=== PATIENT | female | born 1945 | race Caucasian/White ===

== ENCOUNTER 2018-01-18 12:02 | Emergency (ER) | payer MEDICARE, BC ==
[2018-01-18] MEDS: DIPHENHYDRAMINE HCL 50 MG/ML VIAL IVP ONE (12:41)
[2018-01-18] MEDS: METHYLPREDNISOLONE PF 125MG/VIAL IVP ONE (12:41)
[2018-01-18] MEDS: KETOROLAC 30 MG/ML VIAL IVP ONE (12:46)
--- NOTE | 2018-01-18 13:38 | Emergency Department Record ---
History of Present Illness - General Chief complaint: Bite Insect/other Stated complaint: BEE STINGS Time Seen by Provider: 01/18/18 12:22 Source: Patient Mode of Arrival: Wheelchair Limitations: No limitations - History of Present Illness Initial comments: pt was stung by bees 6 times. she has no hx of allergies to bees.. she has pain from the stings and some swelling and erythema over the stings. she was stung on the face, chest and l arm complaint: Insect bite/sting Onset/Timin -: Minutes(s) Hx Tetanus Toxoid Vaccination: No Location: Generalized, Face, Neck, Chest, LUE Severity: Moderate Severity scale (1-10): 7 Quality: Sharp Consistency: Constant Improves with: None Worsens with: None Context: Witnessed insect bite Associated symptoms: Denies other symptoms Treatments Prior to Arrival: None - Related Data Home Medications Medication Instructions Recorded Confirmed Last Taken Spironolactone 50 mg PO DAILY 01/18/18 01/18/18 Unknown Valsartan 40 mg PO DAILY 01/18/18 01/18/18 Unknown Allergies Allergy/AdvReac Type Severity Reaction Status Date / Time albuterol sulfate Allergy Severe SWELLING Verified 10/18/15 11:16 [From ProAir HFA] OF THE TONGUE aspirin [ASPIRIN] Allergy Severe SHORTNESS Verified 10/18/15 11:16 OF BREATH azithromycin Allergy Severe SWELLING Verified 06/28/15 14:14 OF THE LIPS ciprofloxacin [From CIPRO] Allergy Severe SWELLING Verified 10/18/15 11:16 OF THE LIPS ciprofloxacin HCl Allergy Severe SWELLING Verified 10/18/15 11:16 [From CIPRO] OF THE LIPS ranitidine HCl [From ZANTAC] Allergy Severe SHORTNESS Verified 10/18/15 11:16 OF BREATH enalapril maleate Allergy Intermediate SWELLING Verified 10/18/15 11:16 [From VASOTEC] (GENERAL) enalaprilat dihydrate Allergy Intermediate SWELLING Verified 10/18/15 11:16 [From VASOTEC] (GENERAL) cephalexin monohydrate Allergy Mild HIVES Verified 10/18/15 11:16 [From KEFLEX] erythromycin base Allergy Mild HIVES Verified 10/18/15 11:16 [ERYTHROMYCIN BASE] Penicillins [PENICILLINS] Allergy Mild HIVES Verified 10/18/15 11:16 Sulfa (Sulfonamide Allergy Mild RASH Verified 10/18/15 11:16 Antibiotics) [SULFA (SULFONAMIDE ANTIBIOTICS)] Tetracyclines [TETRACYCLINES] Allergy Unknown SWELLING Verified 06/28/14 06:45 OF THE LIPS cefaclor [From Ceclor] AdvReac Mild PT UNSURE Verified 10/18/15 11:16 OF REACTION gentamicin [Gentamicin] AdvReac Mild PT UNSURE Verified 10/18/15 11:16 OF REACTION tetracycline HCl AdvReac Mild PT UNSURE Verified 10/18/15 11:16 [From Achromycin] OF REACTION IODINE Allergy Severe SHORTNESS Uncoded 10/18/15 11:16 OF BREATH Travel Screening - Travel/Exposure Within Last 30 Days Have you traveled within the last 30 days?: No Review of Systems Reviewed: No additional complaints except as noted below Constitutional: Reports: As per HPI. Denies: Chills, Fever, Malaise, Night sweats, Weakness, Weight change Eyes: Reports: As per HPI. Denies: Eye discharge, Eye pain, Photophobia, Vision change ENT: Reports: As per HPI. Denies: Congestion, Dental pain, Ear pain, Epistaxis , Hearing loss, Throat pain Respiratory: Reports: As per HPI. Denies: Cough, Dyspnea, Hemoptysis, Stridor, Wheezes Cardiovascular: Reports: As per HPI. Denies: Arrhythmia, Chest pain, Dyspnea on exertion, Edema, Murmurs, Orthopnea, Palpitations, Paroxysmal nocturnal dyspnea, Rheumatic Fever, Syncope Endocrine: Reports: As per HPI. Denies: Fatigue, Heat or cold intolerance, Polydipsia, Polyuria Gastrointestinal: Reports: As per HPI. Denies: Abdominal pain, Constipation, Diarrhea, Hematemesis, Hematochezia, Melena, Nausea, Vomiting Genitourinary: Reports: As per HPI. Denies: Abnormal menses, Discharge, Dyspareunia, Dysuria, Frequency, Hematuria, Incontinence, Retention, Urgency Musculoskeletal: Reports: As per HPI. Denies: Arthralgia, Back pain, Gout, Joint swelling, Myalgia, Neck pain Skin: Reports: As per HPI. Denies: Bruising, Change in color, Change in hair/ nails, Lesions, Pruritus, Rash Neurological: Reports: As per HPI. Denies: Abnormal gait, Confusion, Headache, Numbness, Paresthesias, Seizure, Tingling, Tremors, Vertigo, Weakness Psychiatric: Reports: As per HPI. Denies: Anxiety, Auditory hallucinations, Depression, Homicidal thoughts, Suicidal thoughts, Visual hallucinations Hematological/Lymphatic: Reports: As per HPI. Denies: Anemia, Blood Clots, Easy bleeding, Easy bruising, Swollen glands Past Medical History - SOCIAL HISTORY Smoking Status: Never smoker - RESPIRATORY Hx Respiratory Disorders: Yes Hx Asthma: Yes - CARDIOVASCULAR Hx Cardio Disorders: Yes Hx Chest Pain: No Hx Deep Vein Thrombosis: Yes (LLE-> r/t injury) Hx Hypertension: Yes Hx Irregular Heartbeat: Yes (a-fib) Hx Palpitations: Yes Comment:: currently wearing a 30 day event recorder d/t syncopal episodes - NEURO Hx Neuro Disorders: Yes Hx Dizziness: Yes (r/t sinus issues) Comment:: pt states she's passed out w/o warning several times - GI Hx GI Disorders: Yes Hx Reflux: Yes (diet controlled) Hx Hepatitis/Jaundice: Yes (when young"infectious") Hx of Polyps: Yes - Hx Genitourinary Disorders: Yes Hx Bladder Problem: Yes (frequency) - ENDOCRINE Hx Endocrine Disorders: Yes Hx Diabetes: Yes (boarderline) - MUSCULOSKELETAL Hx Musculoskeletal Disorders: Yes Hx Arthritis: Yes Hx Back Injury: Yes (2012-fractured vertebra) Comment:: osteopenia - PSYCH Hx Psych Problems: Yes Hx Anxiety: Yes - HEMATOLOGY/ONCOLOGY Hx Hematology/Oncology Disorders: No Family Medical History Any Significant Family History?: Yes Hx Cancer: Mother, Brother/Sister *Cancer Comment: skin, esophageal and stomach, breast Hx Heart Disease: Brother/Sister Hx Stroke: Brother/Sister Physical Exam - General General Appearance: Alert, Oriented x3, Cooperative, Mild distress - Head Head exam: Normal inspection - Eye Eye exam: Normal appearance, PERRL, EOMI Pupils: Normal accommodation - ENT ENT exam: Normal exam, Mucous membranes moist, Normal external ear exam, Normal orophraynx Ear exam: Normal external inspection. negative: External canal tenderness Nasal Exam: Normal inspection. negative: Discharge, Sinus tenderness Mouth exam: Normal external inspection, Tongue normal Teeth exam: Normal inspection. negative: Dental caries Throat exam: Normal inspection. negative: Tonsillar erythema, Tonsillar exudate - Neck Neck exam: Normal inspection, Full ROM. negative: Tenderness - Respiratory Respiratory exam: Normal lung sounds bilaterally. negative: Respiratory distress - Cardiovascular Cardiovascular Exam: Regular rate, Normal rhythm, Normal heart sounds - GI/Abdominal GI/Abdominal exam: Soft, Normal bowel sounds. negative: Tenderness - Rectal Rectal exam: Deferred - exam: Deferred - Extremities Extremities exam: Normal inspection, Full ROM, Normal capillary refill. negative: Tenderness - Back Back exam: Reports: Normal inspection, Full ROM. Denies: Muscle spasm, Rash noted, Tenderness - Neurological Neurological exam: Alert, CN II-XII intact, Normal gait, Oriented X3 - Psychiatric Psychiatric exam: Normal affect, Normal mood - Skin Skin exam: Dry, Intact, Normal color, Warm Type of lesion: Bite/sting Distribution of rash: Chest, Face, Neck, LUE Course Vital Signs 01/18/18 01/18/18 12:04 12:50 Temperature 97.8 F Pulse Rate 78 Pulse Rate [ 82 Pulse Ox Probe] Respiratory 16 22 Rate Blood Pressure 202/151 Blood Pressure 210/99 [Left Arm] Pulse Ox 95 100 - Reevaluation(s) Reevaluation #1: 01/18/18 13:39 pt is feeling better Reevaluation #2: 01/18/18 13:49 pt feels better. Disposition Disposition: Discharge Clinical Impression: Bee sting Qualifiers: Encounter type: initial encounter Injury intent: accidental or unintentional Qualified Code(s): T63.441A - Toxic effect of venom of bees, accidental ( unintentional), initial encounter Disposition: Home, Self-Care Condition: (1) Good Instructions: Insect Bite or Sting (ED) Additional Instructions: follow up with family doctor. return sooner if worse. benadryl every 6 hours if needed. ice to sore areas Forms: Patient Portal Access Quality - Quality Measures Quality Measures: N/A - Blood Pressure Screening Does Patient Have Any of the Following: Active Dx of HTN Blood Pressure Classification: Hypertensive Reading Systolic Measurement: 202 Diastolic Measurement: 151 Screening for High Blood Pressure: Patient Exclusion, Hx of HTN [G9744]
== END 2018-01-18 14:05 | disposition home or self-care (01) ==
LOC: ER 12:02
DX: T63.441A Toxic effect of venom of bees, accidental (unintentional), initial encounter (principal); R21 Rash and other nonspecific skin eruption; I10 Essential (primary) hypertension
CPT/HCPCS: 96374; 96375; 99284; J1200; J2930

== ENCOUNTER 2018-04-01 13:16 | Emergency (ER) | payer MEDICARE, BC ==
--- NOTE | 2018-04-01 13:40 | Emergency Department Record ---
History of Present Illness - General Chief complaint: ENT Stated complaint: TONGUE SWELLING Time Seen by Provider: 04/01/18 13:30 Source: Patient Mode of Arrival: Ambulatory Limitations: No limitations - History of Present Illness Initial comments: The patient is here due to feeling that her tongue is swollen for about a week. She also feels like she is having mild trouble swallowing but no pain, SOB, JAMIE , or obvious swelling to her tongue, face or neck. She also has had no voice changes or drooling. The patient has a hx of multiple allergies and has recently stopped her Zyrtec due to having an allergy test in 8 days. The patient does take Lasartan but has been on that for some time. MD complaint: Other Onset/Timin -: Days(s) Associated Symptoms: Cough, Other - Related Data Home Medications Medication Instructions Recorded Confirmed Last Taken Losartan Potassium 50 mg PO BID 04/01/18 04/01/18 04/01/18 Previous Rx's Medication Instructions Recorded Albuterol Sulfate 0.083% [Neb] 3 ml NEB .EVERY 4-6 HOURS PRN #1 ml 04/01/18 Prednisone [Prednisone 20Mg] 40 mg PO DAILY #8 tab 04/01/18 Allergies Allergy/AdvReac Type Severity Reaction Status Date / Time albuterol sulfate Allergy Severe SWELLING Verified 10/18/15 11:16 [From ProAir HFA] OF THE TONGUE aspirin [ASPIRIN] Allergy Severe SHORTNESS Verified 10/18/15 11:16 OF BREATH azithromycin Allergy Severe SWELLING Verified 06/28/15 14:14 OF THE LIPS ciprofloxacin [From CIPRO] Allergy Severe SWELLING Verified 10/18/15 11:16 OF THE LIPS ciprofloxacin HCl Allergy Severe SWELLING Verified 10/18/15 11:16 [From CIPRO] OF THE LIPS ranitidine HCl [From ZANTAC] Allergy Severe SHORTNESS Verified 10/18/15 11:16 OF BREATH enalapril maleate Allergy Intermediate SWELLING Verified 10/18/15 11:16 [From VASOTEC] (GENERAL) enalaprilat dihydrate Allergy Intermediate SWELLING Verified 10/18/15 11:16 [From VASOTEC] (GENERAL) cephalexin monohydrate Allergy Mild HIVES Verified 10/18/15 11:16 [From KEFLEX] erythromycin base Allergy Mild HIVES Verified 10/18/15 11:16 [ERYTHROMYCIN BASE] Penicillins [PENICILLINS] Allergy Mild HIVES Verified 10/18/15 11:16 Sulfa (Sulfonamide Allergy Mild RASH Verified 10/18/15 11:16 Antibiotics) [SULFA (SULFONAMIDE ANTIBIOTICS)] Tetracyclines [TETRACYCLINES] Allergy Unknown SWELLING Verified 06/28/14 06:45 OF THE LIPS cefaclor [From Ceclor] AdvReac Mild PT UNSURE Verified 10/18/15 11:16 OF REACTION gentamicin [Gentamicin] AdvReac Mild PT UNSURE Verified 10/18/15 11:16 OF REACTION tetracycline HCl AdvReac Mild PT UNSURE Verified 10/18/15 11:16 [From Achromycin] OF REACTION IODINE Allergy Severe SHORTNESS Uncoded 10/18/15 11:16 OF BREATH Travel Screening - Travel/Exposure Within Last 30 Days Have you traveled within the last 30 days?: No - Travel/Exposure Within Last Year Have you traveled outside the [place] in the last year?: No - Additonal Travel Details Have you been exposed to anyone with a communicable illness?: No - Travel Symptoms Symptom Screening: None Review of Systems Constitutional: Denies: Chills, Fever Eyes: Denies: Eye discharge ENT: Denies: Congestion Respiratory: Denies: Cough, Dyspnea Cardiovascular: Denies: Chest pain, Dyspnea on exertion Past Medical History - SOCIAL HISTORY Smoking Status: Never smoker Alcohol Use: None Drug Use: None - RESPIRATORY Hx Respiratory Disorders: Yes Hx Asthma: Yes Hx Pneumonia: Yes - CARDIOVASCULAR Hx Cardio Disorders: Yes Hx Chest Pain: No Hx Deep Vein Thrombosis: Yes (LLE-> r/t injury) Hx Hypertension: Yes Hx Irregular Heartbeat: Yes (a-fib) Hx Palpitations: Yes Comment:: currently wearing a 30 day event recorder d/t syncopal episodes - NEURO Hx Neuro Disorders: Yes Hx Dizziness: Yes (r/t sinus issues) Comment:: pt states she's passed out w/o warning several times - GI Hx GI Disorders: Yes Hx Reflux: Yes (diet controlled) Hx Hepatitis/Jaundice: Yes (when young"infectious") Hx of Polyps: Yes - Hx Genitourinary Disorders: Yes Hx Bladder Problem: Yes (frequency) - ENDOCRINE Hx Endocrine Disorders: Yes Hx Diabetes: Yes (boarderline) - MUSCULOSKELETAL Hx Musculoskeletal Disorders: Yes Hx Arthritis: Yes Hx Back Injury: Yes (2012-fractured vertebra) Comment:: osteopenia - PSYCH Hx Psych Problems: Yes Hx Anxiety: Yes - HEMATOLOGY/ONCOLOGY Hx Hematology/Oncology Disorders: No Family Medical History Any Significant Family History?: No Hx Cancer: Mother, Brother/Sister *Cancer Comment: skin, esophageal and stomach, breast Hx Heart Disease: Brother/Sister Hx Stroke: Brother/Sister Physical Exam - General General Appearance: Alert, Oriented x3, Cooperative, No acute distress - Head Head exam: Atraumatic, Normocephalic - Eye Eye exam: Normal appearance, PERRL. negative: Conjunctival injection - ENT Mouth exam: Normal external inspection, Tongue normal (There is no obvious swelling or edema and no tongue elevation.). negative: Drooling, Muffled voice , Tongue elevation, Trismus Teeth exam: negative: Gingival enlargement Throat exam: Normal inspection. negative: Tonsillar erythema, Tonsillomegaly, Tonsillar exudate, R peritonsillar mass, L peritonsillar mass - Neck Neck exam: Normal inspection, Full ROM. negative: Lymphadenopathy, Tenderness - Respiratory Respiratory exam: Normal lung sounds bilaterally. negative: Respiratory distress - Cardiovascular Cardiovascular Exam: Regular rate, Normal rhythm, Normal heart sounds Course Vital Signs 04/01/18 04/01/18 13:23 13:34 Temperature 97.4 F L Pulse Rate 63 Respiratory 20 Rate Blood Pressure 220/88 Blood Pressure 190/93 [Left Arm] Pulse Ox 98 - Reevaluation(s) Reevaluation #1: The patient is doing very well at this time. She has no new symptoms and is talking normally. She has no evidence of any airway or tongue or lip edema. She is to see her human service specialist next week as planned and to see her PCP later this week for recheck. 04/01/18 14:33 Medical Decision Making - Data Complexity MDM Data: Labs Ordered and/or Reviewed, X-Ray Ordered and/or Reviewed - Lab Data Result diagrams: 04/01/18 13:49 04/01/18 13:49 - Radiology Data Radiology results: Report reviewed (Soft tissue neck: neg per Rad.) Disposition Disposition: Discharge Clinical Impression: Globus hystericus Disposition: Home, Self-Care Condition: (2) Stable Instructions: Dysphagia (ED) Additional Instructions: Please continue your home medicines and restart the Zyrtec for 4 days with the Prednisone. Please see your family doctor later this week for recheck and see if you can delay your allergy test for 4 days. Return to the ER for any worsening symptoms. Prescriptions: Albuterol Sulfate 0.083% [Neb] 3 ml NEB .EVERY 4-6 HOURS PRN #1 ml PRN Reason: Difficulty In Breathing Prednisone [Prednisone 20Mg] 40 mg PO DAILY #8 tab Forms: Patient Portal Access Time of Disposition: 14:36 Quality - Quality Measures Quality Measures: N/A - Blood Pressure Screening View Details: Yes Does Patient Have Any of the Following: Active Dx of HTN Blood Pressure Classification: Pre-Hypertensive BP Reading Systolic Measurement: 220 Diastolic Measurement: 88 Screening for High Blood Pressure: Patient Exclusion, Hx of HTN [G9744]
[2018-04-01 14:01] LABS: BASO % 0.2 % (0-6); EOS % 0.8 % (0-6); GRAN % 66.6 % (47-80); HEMATOCRIT 43.3 % (35.0-47.0); HEMOGLOBIN 14.7 gm/dl (11.6-16.0); MEAN CELL VOLUME 92.3 fl (81-97); MEAN CORPUSCULAR HEMOGLOBIN 31.3 pg (27-33); MEAN CORPUSCULAR HGB CONC 33.9 g/dl (32-36); MEAN PLATELET VOLUME 10.7 fl (7.4-10.4); MONO % 9.4 % (0-9); PLATELET COUNT 256 K/uL (130-400); RED BLOOD COUNT 4.69 M/uL (3.80-5.40); RED CELL DISTRIBUTION WIDTH 12.2 % (11.5-14.5); WHITE BLOOD COUNT W/O DIFF 6.1 K/uL (4.2-12.2)
[2018-04-01 14:06] LABS: BLOOD UREA NITROGEN 25 mg/dL (8-23); CREATININE 0.9 mg/dL (0.5-0.9); EST GLOMERULAR FILTRATION RATE > 60 mL/min
[2018-04-01 14:07] LABS: TOTAL PROTEIN 7.7 g/dL (6.6-8.7)
[2018-04-01 14:09] LABS: GLUCOSE,RANDOM 115 mg/dL (74-109)
[2018-04-01 14:12] LABS: ALB/GLOB RATIO 1.6 (1.1-1.8); ALBUMIN 4.7 g/dL (4.0-5.0); ALKALINE PHOSPHATASE 89 U/L (35-104); ALT/SGPT 20 U/L (<33); AST/SGOT 17 U/L (10.0-35.0)
--- NOTE | 2018-04-02 12:47 | RADIOLOGY REPORT ---
EXAM: SOFT TISSUE NECK HISTORY: DIFFICULTY BREATHING. TECHNIQUE: Two views of the soft tissue neck were performed. FINDINGS: There is degenerative change at C5-C6 through C6-C7 levels. There is underlying osteopenia. There is straightening of the normal cervical lordosis. The prevertebral soft tissues are normal. The airway is patent. The epiglottis appears normal. IMPRESSION: 1. DEGENERATIVE CHANGE AT C5-C6 THROUGH C6-C7 LEVELS. 2. THE AIR IS PATENT. THE EPIGLOTTIS APPEARS NORMAL. JOB NUMBER: [id number] [facility]
== END 2018-04-01 14:49 | disposition home or self-care (01) ==
LOC: ER 13:16
DX: F45.8 Other somatoform disorders (principal); R55 Syncope and collapse; R05 Cough; R06.00 Dyspnea, unspecified; I10 Essential (primary) hypertension
CPT/HCPCS: 70360; 80053; 85025; 99283

== ENCOUNTER 2019-02-20 18:25 | Emergency (ER) | payer MEDICARE, BC ==
[2019-02-20] MEDS ORDERED: ASPIRIN 81 MG CHEWABLE TABLET PO ONE (18:35)
--- NOTE | 2019-02-20 18:40 | Emergency Department Record ---
History of Present Illness - General Chief Complaint: Chest Pain Stated Complaint: JAMIE/CHEST HEAVINESS/WEAK/DIZZY Time Seen by Provider: 02/20/19 18:35 Source: Patient Mode of Arrival: Ambulatory Limitations: No limitations - History of Present Illness Initial Comments: 73 yo female presents to ED for evaluation of shortness of breath symptoms associated with chest discomfort intermittently for the past 2-3 weeks. Patient reports a history of asthma, reports that she was told by her PCP to use her inhaler for her symptoms. Patient denies history of CAD, DM, or DVT/PE, reports history of HTN at her baseline. Patient denies fevers, chills, cough, calf pain or swelling, or lower extremity edema symptoms. MD Complaint: Chest pain -: Week(s) Pain Location: Substernal Pain Radiation: Back Severity: Moderate Quality: Aching Consistency: Intermittent Improves With: Nothing Worsens With: Nothing Anginal Symptoms: Dyspnea Treatments Prior to Arrival: None - Related Data On Oral Contraceptives: No Home Medications Medication Instructions Recorded Confirmed Last Taken Calcium Carbonate [Calcium] 500 mg PO DAILY 02/20/19 02/20/19 02/20/19 Previous Rx's Medication Instructions Recorded Albuterol Sulfate 0.083% [Neb] 3 ml NEB .EVERY 4-6 HOURS PRN #1 ml 04/01/18 [Albuterol Sulfate] Allergies Allergy/AdvReac Type Severity Reaction Status Date / Time albuterol sulfate Allergy Severe SWELLING Verified 02/20/19 18:30 [From ProAir HFA] OF THE TONGUE aspirin [ASPIRIN] Allergy Severe SHORTNESS Verified 02/20/19 18:30 OF BREATH azithromycin Allergy Severe SWELLING Verified 02/20/19 18:30 OF THE LIPS ciprofloxacin [From CIPRO] Allergy Severe SWELLING Verified 02/20/19 18:30 OF THE LIPS ciprofloxacin HCl Allergy Severe SWELLING Verified 02/20/19 18:30 [From CIPRO] OF THE LIPS ranitidine HCl [From ZANTAC] Allergy Severe SHORTNESS Verified 02/20/19 18:30 OF BREATH enalapril maleate Allergy Intermediate SWELLING Verified 02/20/19 18:30 [From VASOTEC] (GENERAL) enalaprilat dihydrate Allergy Intermediate SWELLING Verified 02/20/19 18:30 [From VASOTEC] (GENERAL) cephalexin monohydrate Allergy Mild HIVES Verified 02/20/19 18:30 [From KEFLEX] erythromycin base Allergy Mild HIVES Verified 02/20/19 18:30 [ERYTHROMYCIN BASE] Penicillins [PENICILLINS] Allergy Mild HIVES Verified 02/20/19 18:30 Sulfa (Sulfonamide Allergy Mild RASH Verified 02/20/19 18:30 Antibiotics) [SULFA (SULFONAMIDE ANTIBIOTICS)] Tetracyclines [TETRACYCLINES] Allergy Unknown SWELLING Verified 02/20/19 18:30 OF THE LIPS cefaclor [From Ceclor] AdvReac Mild PT UNSURE Verified 02/20/19 18:30 OF REACTION gentamicin [Gentamicin] AdvReac Mild PT UNSURE Verified 02/20/19 18:30 OF REACTION tetracycline HCl AdvReac Mild PT UNSURE Verified 02/20/19 18:30 [From Achromycin] OF REACTION IODINE Allergy Severe SHORTNESS Uncoded 10/18/15 11:16 OF BREATH Review of Systems Constitutional: Denies: Chills, Fever, Malaise, Night sweats Eyes: Denies: Eye discharge, Eye pain ENT: Denies: Congestion, Ear pain, Epistaxis Respiratory: Reports: Dyspnea. Denies: Cough, Hemoptysis Cardiovascular: Reports: Chest pain. Denies: Dyspnea on exertion, Edema, Palpitations Endocrine: Denies: Fatigue, Heat or cold intolerance Gastrointestinal: Denies: Abdominal pain, Nausea, Vomiting Genitourinary: Denies: Incontinence, Retention Musculoskeletal: Denies: Arthralgia, Back pain Skin: Denies: Bruising, Change in color Neurological: Denies: Abnormal gait, Confusion, Headache, Tingling, Tremors Psychiatric: Denies: Anxiety Hematological/Lymphatic: Denies: Anemia, Blood Clots Past Medical History - SOCIAL HISTORY Smoking Status: Never smoker Drug Use: None - RESPIRATORY Hx Respiratory Disorders: Yes Hx Asthma: Yes Hx Pneumonia: Yes - CARDIOVASCULAR Hx Cardio Disorders: Yes Hx Chest Pain: No Hx Deep Vein Thrombosis: Yes (LLE-> r/t injury) Hx Hypertension: Yes Hx Irregular Heartbeat: Yes (a-fib) Hx Palpitations: Yes Comment:: currently wearing a 30 day event recorder d/t syncopal episodes - NEURO Hx Neuro Disorders: Yes Hx Dizziness: Yes (r/t sinus issues) Comment:: pt states she's passed out w/o warning several times - GI Hx GI Disorders: Yes Hx Reflux: Yes (diet controlled) Hx Hepatitis/Jaundice: Yes (when young"infectious") Hx of Polyps: Yes - Hx Genitourinary Disorders: Yes Hx Bladder Problem: Yes (frequency) - ENDOCRINE Hx Endocrine Disorders: Yes Hx Diabetes: Yes (boarderline) - MUSCULOSKELETAL Hx Musculoskeletal Disorders: Yes Hx Arthritis: Yes Hx Back Injury: Yes (2012-fractured vertebra) Comment:: osteopenia - PSYCH Hx Psych Problems: Yes Hx Anxiety: Yes - HEMATOLOGY/ONCOLOGY Hx Hematology/Oncology Disorders: No Family Medical History Hx Cancer: Mother, Brother/Sister *Cancer Comment: skin, esophageal and stomach, breast Hx Heart Disease: Brother/Sister Hx Stroke: Brother/Sister Physical Exam - General General Appearance: Alert, Oriented x3, Cooperative, No acute distress Limitations: No limitations - Head Head exam: Atraumatic, Normocephalic, Normal inspection Head exam detail: negative: Abrasion, Contusion, Carrillo's sign, General tenderness, Hematoma, Laceration - Eye Eye exam: Normal appearance. negative: Conjunctival injection, Periorbital swelling, Periorbital tenderness, Scleral icterus - ENT Ear exam: negative: Auricular hematoma, Auricular trauma Nasal Exam: negative: Active bleeding, Discharge, Dried blood, Foreign body Mouth exam: negative: Drooling, Laceration, Muffled voice, Tongue elevation - Neck Neck exam: Normal inspection. negative: Meningismus, Tenderness - Respiratory Respiratory exam: Normal lung sounds bilaterally. negative: Respiratory distress, Rhonchi, Stridor, Wheezes - Cardiovascular Cardiovascular Exam: Regular rate, Normal rhythm, Normal heart sounds - GI/Abdominal GI/Abdominal exam: Soft. negative: Distended, Rebound, Rigid, Tenderness - Rectal Rectal exam: Deferred - exam: Deferred - Extremities Extremities exam: Normal inspection. negative: Pedal edema, Tenderness - Back Back exam: Denies: CVA tenderness (R), CVA tenderness (L) - Neurological Neurological exam: Alert, Normal gait, Oriented X3 - Psychiatric Psychiatric exam: Normal affect, Normal mood - Skin Skin exam: Normal color. negative: Abrasion Type of lesion: negative: abrasion Course - Reevaluation(s) Reevaluation #1: 02/20/19 18:39 EKG: NSR 65 Normal axis, normal intervals Q waves V1-V3 Reevaluation #2: 02/20/19 19:42 Laboratory studies were reviewed and appear grossly unremarkable for an acute process except for GFR 39. CXR: Probable COPD, no acute process Patient was updated on all results, reports that she sees Dr. Farrar (Cardiology in [place]), recommended transfer for further cardiac evaluation. Patient was offered to stay here at [facility] but would not be able to see a freelance photographer from her group, prefers transfer for further evaluation. [facility] contacted for transfer. Reevaluation #3: 02/20/19 20:02 Case was discussed with Dr. Pennington, will accept patient for further cardiac evaluation. SL nitroglycerine ordered for elevated BP here in the ED as well. Medical Decision Making - Lab Data Result diagrams: 02/20/19 18:45 02/20/19 18:45 Disposition Disposition: Transfer Clinical Impression: Chest discomfort Disposition: Acute Care Hospital Transfer Transfer To: [facility] Reason For Transfer: Cardiology evaluation, has established freelance photographer in [place] Accepting Physician: Gorge Time Discussed w/Accepting Physician: 20:03 Condition: (2) Stable Forms: Patient Portal Access Time of Disposition: 20:03 Quality - Quality Measures Quality Measures: N/A - Blood Pressure Screening Does Patient Have Any of the Following: Active Dx of HTN Blood Pressure Classification: Hypertensive Reading Systolic Measurement: 208 Diastolic Measurement: 97 Screening for High Blood Pressure: Patient Exclusion, Hx of HTN [G9744]
[2019-02-20 19:00] LABS: ABSOLUTE NEUTROPHIL COUNT 3.84; BASO % 0.3 % (0-6); EOS % 1.1 % (0-6); GRAN % 54.9 % (47-80); HEMATOCRIT 41.8 % (35.0-47.0); HEMOGLOBIN 13.7 gm/dl (11.6-16.0); MEAN CELL VOLUME 93.9 fl (81-97); MEAN CORPUSCULAR HEMOGLOBIN 30.8 pg (27-33); MEAN CORPUSCULAR HGB CONC 32.8 g/dl (32-36); MEAN PLATELET VOLUME 10.8 fl (7.4-10.4); MONO % 8.7 % (0-9); PLATELET COUNT 246 K/uL (130-400); RED BLOOD COUNT 4.45 M/uL (3.80-5.40); RED CELL DISTRIBUTION WIDTH 12.7 % (11.5-14.5)
[2019-02-20 19:12] LABS: BLOOD UREA NITROGEN 23 mg/dL (8-23); CREATININE 1.4 mg/dL (0.5-0.9); EST GLOMERULAR FILTRATION RATE 39 mL/min
[2019-02-20 19:13] LABS: TOTAL PROTEIN 7.7 g/dL (6.6-8.7)
[2019-02-20 19:15] LABS: GLUCOSE,RANDOM 137 mg/dL (74-109)
[2019-02-20 19:17] LABS: ALB/GLOB RATIO 1.6 (1.1-1.8); ALBUMIN 4.7 g/dL (4.0-5.0); ALT/SGPT 23 U/L (<33); AST/SGOT 21 U/L (10.0-35.0)
[2019-02-20 19:18] LABS: ALKALINE PHOSPHATASE 91 U/L (35-104)
[2019-02-20] MEDS ORDERED: NITROGLYCERIN 0.4MG SL TABLET #25 BTL SL PRN (20:02)
--- NOTE | 2019-02-21 15:00 | RADIOLOGY REPORT ---
EXAM: CHEST, TWO VIEWS HISTORY: DIFFICULTY BREATHING, CHEST DISCOMFORT. TECHNIQUE: Frontal and lateral views of the chest were obtained. Comparison: 02/27/13. FINDINGS: The lungs appear hyperinflated. Curvilinear opacity near the costophrenic angle region on the right may represent atelectasis, scarring, or artifact. No focal lung consolidations, effusions, or pneumothoraces evident. The heart size is within normal limits. The hilar and mediastinal borders are grossly unremarkable. No rib lesions discretely imaged. The bones appear osteopenic. There is mild spurring of the spine. IMPRESSION: 1. HYPERINFLATED LUNGS SUGGESTING COPD. 2. CURVILINEAR OPACITY AT THE RIGHT BASE. DIFFERENTIAL CONSIDERATIONS ABOVE. 3. ER NOTIFIED BY VOICE CLIP. JOB NUMBER: [id number] MTDD
== END 2019-02-20 22:01 | disposition short-term general hospital (02) ==
LOC: ER 18:25
DX: R07.2 Precordial pain (principal); I10 Essential (primary) hypertension; R06.00 Dyspnea, unspecified
CPT/HCPCS: 71046; 80053; 83880; 84484; 85025; 93005; 93010; 99285

== ENCOUNTER 2019-03-14 14:35 | Emergency (ER) | payer MEDICARE, BC ==
--- NOTE | 2019-03-14 15:20 | Emergency Department Record ---
History of Present Illness - General Chief complaint: Eye Problem Stated complaint: CHANGE IN VISION/DIZZY Time Seen by Provider: 03/14/19 14:52 Source: Patient Mode of Arrival: Ambulatory Limitations: No limitations - History of Present Illness Initial comments: The patient is here due to mild blurry vision for 2 days. She also is having mild dizziness. The patient thinks it is due to recent medication changes. There is no hx of ADAIR, neck pain, fever, trauma, CP, SOB, or balance issues. MD chief complaint: Vision change Onset/Timin -: Days(s) Location: Both eyes If Injury: None Eye Symptoms: Blurry vision, Discharge - Related Data Hx Tetanus Toxoid Vaccination: No Home Medications Medication Instructions Recorded Confirmed Last Taken Hydralazine HCl 25 mg PO BID 03/14/19 03/14/19 03/14/19 Previous Rx's Medication Instructions Recorded Albuterol Sulfate 0.083% [Neb] 3 ml NEB .EVERY 4-6 HOURS PRN #1 ml 04/01/18 [Albuterol Sulfate] Allergies Allergy/AdvReac Type Severity Reaction Status Date / Time albuterol sulfate Allergy Severe SWELLING Verified 02/20/19 18:30 [From ProAir HFA] OF THE TONGUE aspirin [ASPIRIN] Allergy Severe SHORTNESS Verified 02/20/19 18:30 OF BREATH azithromycin Allergy Severe SWELLING Verified 02/20/19 18:30 OF THE LIPS ciprofloxacin [From CIPRO] Allergy Severe SWELLING Verified 02/20/19 18:30 OF THE LIPS ciprofloxacin HCl Allergy Severe SWELLING Verified 02/20/19 18:30 [From CIPRO] OF THE LIPS ranitidine HCl [From ZANTAC] Allergy Severe SHORTNESS Verified 02/20/19 18:30 OF BREATH enalapril maleate Allergy Intermediate SWELLING Verified 02/20/19 18:30 [From VASOTEC] (GENERAL) enalaprilat dihydrate Allergy Intermediate SWELLING Verified 02/20/19 18:30 [From VASOTEC] (GENERAL) cephalexin monohydrate Allergy Mild HIVES Verified 02/20/19 18:30 [From KEFLEX] erythromycin base Allergy Mild HIVES Verified 02/20/19 18:30 [ERYTHROMYCIN BASE] Penicillins [PENICILLINS] Allergy Mild HIVES Verified 02/20/19 18:30 Sulfa (Sulfonamide Allergy Mild RASH Verified 02/20/19 18:30 Antibiotics) [SULFA (SULFONAMIDE ANTIBIOTICS)] Tetracyclines [TETRACYCLINES] Allergy Unknown SWELLING Verified 02/20/19 18:30 OF THE LIPS cefaclor [From Ceclor] AdvReac Mild PT UNSURE Verified 02/20/19 18:30 OF REACTION gentamicin [Gentamicin] AdvReac Mild PT UNSURE Verified 02/20/19 18:30 OF REACTION tetracycline HCl AdvReac Mild PT UNSURE Verified 02/20/19 18:30 [From Achromycin] OF REACTION IODINE Allergy Severe SHORTNESS Uncoded 10/18/15 11:16 OF BREATH Travel Screening - Travel/Exposure Within Last 30 Days Have you traveled within the last 30 days?: No Review of Systems Constitutional: Denies: Chills, Fever Eyes: Denies: Eye discharge ENT: Denies: Congestion Respiratory: Denies: Cough, Dyspnea Cardiovascular: Denies: Arrhythmia Past Medical History - SOCIAL HISTORY Smoking Status: Never smoker Alcohol Use: None Drug Use: None - RESPIRATORY Hx Respiratory Disorders: Yes Hx Asthma: Yes Hx Pneumonia: Yes - CARDIOVASCULAR Hx Cardio Disorders: Yes Hx Deep Vein Thrombosis: Yes (LLE-> r/t injury) Hx Hypertension: Yes Hx Irregular Heartbeat: Yes (a-fib) Hx Palpitations: Yes - NEURO Hx Neuro Disorders: Yes Hx Dizziness: Yes - GI Hx GI Disorders: Yes Hx Reflux: Yes Hx Hepatitis/Jaundice: Yes Hx of Polyps: Yes - Hx Genitourinary Disorders: Yes Hx Bladder Problem: Yes (frequency) - ENDOCRINE Hx Endocrine Disorders: Yes Hx Diabetes: Yes (boarderline) - MUSCULOSKELETAL Hx Musculoskeletal Disorders: Yes Hx Arthritis: Yes Hx Back Injury: Yes (2012-fractured vertebra) Comment:: osteopenia - PSYCH Hx Psych Problems: Yes Hx Anxiety: Yes - HEMATOLOGY/ONCOLOGY Hx Hematology/Oncology Disorders: No Family Medical History Any Significant Family History?: Yes Hx Cancer: Mother, Brother/Sister *Cancer Comment: skin, esophageal and stomach, breast Hx Heart Disease: Brother/Sister Hx Stroke: Brother/Sister Physical Exam - General General Appearance: Alert, Oriented x3, Cooperative, No acute distress - Head Head exam: Atraumatic, Normocephalic, Normal inspection - Eye Eye exam: Normal appearance, PERRL, EOMI. negative: Conjunctival injection Visual acuity (L) = 20/: 30 Visual acuity (R) = 20/: 30 - ENT Throat exam: Normal inspection. negative: Tonsillar erythema, Tonsillar exudate - Neck Neck exam: Normal inspection, Full ROM. negative: Tenderness - Respiratory Respiratory exam: Normal lung sounds bilaterally. negative: Respiratory distress - Cardiovascular Cardiovascular Exam: Regular rate, Normal rhythm, Normal heart sounds - GI/Abdominal GI/Abdominal exam: Soft, Normal bowel sounds. negative: Tenderness - Extremities Extremities exam: Normal inspection, Full ROM, Normal capillary refill. negative: Tenderness - Neurological Neurological exam: Alert, Normal gait, Oriented X3, Other (Neg Drift and Rhomberb.). negative: Abnormal gait, Altered, Motor sensory deficit - Psychiatric Psychiatric exam: Anxious Course Vital Signs 03/14/19 14:47 Temperature 97.9 F Pulse Rate 71 Respiratory 20 Rate Blood Pressure 196/79 Pulse Ox 98 - Reevaluation(s) Reevaluation #1: The patient is doing very well at this time. Her vision is at baseline and she believes her symptoms are due to one of her new BP medicines. I did explain to her that due to the fact she is on multiple medicines and now well controlled I do not feel comfortable changing her meds. She is to see her PCP next week for recheck and to return to the ER for any worsening symptoms. 03/14/19 16:32 Medical Decision Making - Data Complexity MDM Data: Labs Ordered and/or Reviewed, X-Ray Ordered and/or Reviewed - Lab Data Result diagrams: 03/14/19 15:25 03/14/19 15:25 - Radiology Data Radiology results: Report reviewed (Head CT: Neg for any acute changes.) Disposition Disposition: Discharge Clinical Impression: Hypertension Qualifiers: Hypertension type: unspecified Qualified Code(s): I10 - Essential (primary) hypertension Disposition: Home, Self-Care Condition: (2) Stable Instructions: Hypertension (ED) Additional Instructions: Please continue your regular medicines and please see your doctor next week. Return to the ER for any worsening symptoms. Forms: Patient Portal Access Time of Disposition: 16:35 Quality - Quality Measures Quality Measures: N/A - Blood Pressure Screening View Details: Yes Does Patient Have Any of the Following: Active Dx of HTN Blood Pressure Classification: Hypertensive Reading Systolic Measurement: 196 Diastolic Measurement: 79 Screening for High Blood Pressure: Patient Exclusion, Hx of HTN [[id number]]
[2019-03-14 15:45] LABS: ABSOLUTE NEUTROPHIL COUNT 4.98; BASO % 0.1 % (0-6); EOS % 0.7 % (0-6); GRAN % 73.5 % (47-80); HEMATOCRIT 41.7 % (35.0-47.0); HEMOGLOBIN 13.4 gm/dl (11.6-16.0); LYMPH % 17.7 % (16-45); MEAN CELL VOLUME 94.6 fl (81-97); MEAN CORPUSCULAR HEMOGLOBIN 30.4 pg (27-33); MEAN CORPUSCULAR HGB CONC 32.1 g/dl (32-36); MEAN PLATELET VOLUME 10.7 fl (7.4-10.4); PLATELET COUNT 284 K/uL (130-400); RED BLOOD COUNT 4.41 M/uL (3.80-5.40); RED CELL DISTRIBUTION WIDTH 12.5 % (11.5-14.5); WHITE BLOOD COUNT W/O DIFF 6.8 K/uL (4.2-12.2)
[2019-03-14 15:53] LABS: BILIRUBIN,TOTAL 0.7 mg/dL (0.2-1.0); TOTAL PROTEIN 7.5 g/dL (6.6-8.7)
--- NOTE | 2019-03-14 15:57 | CT SCAN REPORT ---
EXAMINATION: HEAD WO CONTRAST EXAM DATE: 03/14/2019 3:46 PM TECHNIQUE: Noncontrast axial images were obtained to the brain. INDICATION: visual changes and dizziness. COMPARISON: 08/14/2012 ENCOUNTER: Not applicable. HAND DOMINANCE: Unknown FINDINGS: Low-attenuation areas in the periventricular and subcortical white matter. The brain parenchyma is o therwise unremarkable. No loss of anderson-white matter differentiation or sulcal effacement to indicate acute infarction. No evidence of intracranial mass. There is mild enlargement consistent with age of the ventricles, sulci, and subarachnoid spaces. No h ydrocephalus. There is arterial calcification. No intra-axial or extra-axial fluid collection. No evidence of intracranial hemorrhage. The paranasal sinuses, mastoid air cells, and orbits are unremarkable. The calvarium is intact. IMPRESSION: 1. No CT evidence of intracranial hemorrhage or acute intracranial abnormality. 2. Mild white matter hypoattenuation most commonly represents chronic microvascular ischemic diseas e, progressed from 2012. Dictated by: AYDIN MONROY MD on 03/14/2019 3:54 PM. .
[2019-03-14 15:58] LABS: ALB/GLOB RATIO 1.9 (1.1-1.8); ALBUMIN 4.9 g/dL (4.0-5.0)
== END 2019-03-14 17:01 | disposition home or self-care (01) ==
LOC: ER 14:35
DX: I10 Essential (primary) hypertension (principal); R42 Dizziness and giddiness; H53.8 Other visual disturbances
CPT/HCPCS: 70450; 80053; 85025; 99284